=== PATIENT | male | born 1990 | race Caucasian/White ===

== ENCOUNTER 2021-10-22 02:16 | Emergency (ER) | payer SELFPAY ==
[2021-10-22] MEDS ORDERED: ZYRTEC10 MG PO (03:25)
[2021-10-22] MEDS ORDERED: EPIPEN0.3 MG/0.3 IM (03:25)
== END 2021-10-22 04:30 | disposition home or self-care (01) ==
LOC: FER 02:16
DX: L50.0 Allergic urticaria (principal); T50.995A Adverse effect of other drugs, medicaments and biological substances, initial encounter; Y93.89 Activity, other specified; Y99.0 Civilian activity done for income or pay; Y92.89 Other specified places as the place of occurrence of the external cause
CPT/HCPCS: 96372; J7030